=== PATIENT | male | born 1990 | race Caucasian/White ===

== ENCOUNTER 2018-01-01 04:49 | Inpatient (IN) | payer SELFPAY ==
[~2018-01-01] VITALS: Ht 170.2 cm; Wt 60.4 kg
[2018-01-01 08:30] VITALS: BP 102/65; PULSE 65; RESP 16; TEMP 97.4; O2SAT 97
[2018-01-01] MEDS ORDERED: BENZ0.5T PO (10:01)
[2018-01-01] MEDS ORDERED: RISP.25 PO (10:01)
[2018-01-01] MEDS ORDERED: ALUMINUM/MAGNESIUM/SIMETH 30 ML CUP PO PRN (13:30)
[2018-01-01] MEDS ORDERED: ACETAMINOPHEN 325 MG TAB PO PRN (13:30)
[2018-01-01] MEDS ORDERED: MAGNESIUM HYDROXIDE SUSP 30 ML CUP PO PRN (13:30)
[2018-01-01] MEDS ORDERED: hydrOXYzine HCL 50 MG TAB PO PRN (15:45)
--- NOTE | 2018-01-01 16:04 | HHI.HP ---
Provisional Diagnosis Admission Date Jan 01, 2018 at 08:32 [place]. Schizophrenia chronic paranoid type Certification of Person's Competence To Provide Express and Informed Consent I have personally examined Sandee Minaya , a person being served at [facility] on, Jan 01, 2018 15:49. Express and informed consent means consent voluntarily given in writing, by a competent person, after sufficient explanation and disclosure of the subject matter involved to enable the person to make a knowing and willful decision without any element of force, fraud, deceit, duress, or other form of constraint or coercion. This person is 18 years of age or older, is not now known to be incompetent to consent to treatment with a guardian advocate, and does not have a health care surrogate or proxy currently making medical treatment decisions. I have found this person to be one of the following: [] Competent to provide express and informed consent, as defined above, for voluntary admission to this facility and is competent to provide express and informed consent for treatment. He/she has the consistent capacity to make well reasoned, willful, and knowing decisions concerning his or her medical or mental health treatment. The person fully and consistently understands the purpose of the admission for examination/placement and is fully capable of personally exercising all rights assured [place] [] Incompetent to provide express and informed consent to voluntary admission, and this is incompetent to provide express and informed consent to treatment. The person must be transferred to involuntary status and a petition for a guardian advocate filed with the Circuit Court. [xxx] Refusing to provide express and informed consent to voluntary admission but is competent to provide express and informed consent for treatment. The person must be discharged or transferred to involuntary status. Form shall be completed within 24 hours of a person's arrival at the receiving facility and filed in the clinical record of each person: 1. Admitted on a voluntary basis 2. Permitted to provide express and informed consent to his/her own treatment 3. Allowed to transfer from involuntary to voluntary status 4. Prior to permitting a person to consent to his or her own treatment after having been previously found incompetent to consent to treatment. History of Present Illness Capacity: Lacks Capacity (patient less capacity sign for hospitalization, patient has capacity sign for medications) HPI Patient is a 27 rolled Afro-[place] male comes here from one of the [facility] under Smith act signed by an eligible signature dated 12/31/17 at 8:41 PM the document reviewed and agreed with stating patient presents with reticulocyte behavior patient states he has been chewing on his hands and feet because God told him to. Patient states he is having voices she has poor insight and poor judgment. Is also documentation that he has been noted to be masturbating while in a public library. Patient seen screened at that facility urine toxicology negative. At the present time patient sitting in his room nurse Joanie present throughout session somewhat anxious showing marked thought blocking distractibility and delays in responses. Though he reluctantly did acknowledge auditory hallucinations though somewhat disturbing command nature. When asked about his hands able to them as if they were strange and pointed them out to me. He did acknowledge past psychiatric hospitalization but not 1. Needs vague about suicidality at this time. He states he lives with his parents and the [facility]. Then he went to 11th grade and get his GED and has been been successfully gainfully employed. States she has had girlfriends but is never been and has no children. He is vague about his compliance with medication states she has been prescribed Respinol and Cogentin though the med reconciliation shows the Respinol only 0.25 mg. At this time patient does meet criteria for acute psychiatric hospitalization under the Smith act I'll do first opinion request second opinion. I feel patient does have capacity we will allow him to sign for his medication. We'll start him on Respinol M tab 1 mg twice a day and Cogentin 1 mg in the morning. Hopeless be fairly short stay in the community return to his family Review of Systems Except as stated in HPI: all other systems reviewed are Neg Past Psych History Psychological trauma history Patient denies at this time Violence risk - others (6 mos) Low Violence risk - self (6 mos) Hospital self-mutilation Substance Abuse History Drugs/Alcohol past 12 months Patient denies Past Family Social History Coded Allergies: No Known Allergies (Verified Allergy, Unknown, 01/01/18) Discontinued Reported Medications Benztropine (Benztropine) 0.5 Mg Tab, 1 MG PO HS, #60 TAB 0 Refills 01/01/18 Risperidone (Risperdal) 0.25 Mg Tab, 0 PO HS, #30 TAB 0 Refills 01/01/18 Current Medications Medications (Trade) Dose Ordered Sig/Lauren Route Start Time Stop Time Status Last Admin (Tylenol) 650 mg Q4H PRN PO 01/01/18 13:30 (Milk Of Magnesia Liq) 30 ml DAILY PRN PO 01/01/18 13:30 (Mag-Al Plus Susp Liq) 30 ml Q6H PRN PO 01/01/18 13:30 Family Psych History Ration denies Social History Patient is single has had a girlfriend, has no children sexual preferences female Patient's Strengths (min. 2) Patient verbal irritable axis health care Physical Exam Patient medically cleared a [facility] at the present time patient sitting quietly in his room he is in no acute distress, he is in no pressure distress, he does not complain of abdominal pain. Patient moves all 4 extremities without difficulty no abnormal motor movements noted Vital Signs Vital Signs Date Time Temp Pulse Resp B/P (MAP) Pulse Ox O2 Delivery O2 Flow Rate FiO2 01/01/18 08:30 97.4 65 16 102/65 (77) 97 Mental Status Examination Appearance: Appropriate Consciousness: Alert Orientation: Person, Place Motor Activity: Normal gait Speech: Hesitant, Slow Language: Adequate Fund of Knowledge: Adequate Attention and Concentration: Easily Distracted Memory: Impaired Mood: Other (euthymic to slightly dysphoric and restricted) Affect: Other (decreased range and intensity) Thought Process & Associations: Linear Thought Content: Bizarre thinking Hallucination Type: Auditory Delusion Type: Paranoid Suicidal Ideation: No Suicidal Plan: No Suicidal Intention: No Homicidal Ideation: No Homicidal Plan: No Homicidal Intention: No Insight: Poor Judgment: Poor Assessment & Plan Problem List: (1) Paranoid type schizophrenia, chronic state ICD Codes: F20.0 - Paranoid schizophrenia Assessment & Plan Estimated LOS: 5-7 days this time patient meets criteria for involuntary psychiatric hospitalization of the first opinion request second opinion. I feel he has capacity. We'll start him on Respinol M tab 1 mg twice a day and Cogentin 1 mg in the morning. Attempt to reach patient's family who he states lives in [place]. Discharge Planning Possible discharge to family when stabilized Request HC Surrog/Guard Advoc?: No Ortiz Napoles MD Jan 01, 2018 16:03
[2018-01-01 17:36] VITALS: BP 105/67; PULSE 67; RESP 17; TEMP 97.6; O2SAT 98
[2018-01-01] MEDS: risperiDONE ODT 1 MG TAB PO SCH (21:00)
[2018-01-02 06:35] VITALS: BP 119/56; PULSE 62; RESP 17; TEMP 97.6; O2SAT 98
[2018-01-02] MEDS: risperiDONE ODT 1 MG TAB PO SCH ×2 (09:00→21:00)
[2018-01-02] MEDS: BENZTROPINE MESYLATE 1 MG TAB PO SCH (09:00)
--- NOTE | 2018-01-02 12:33 | PD.PSY.CON ---
Provisional Diagnosis Admission Date Jan 01, 2018 at 08:32 [place]. Schizophrenia chronic paranoid type History of Present Illness Service Psychiatry Consult Requested By Dr. Napoles Reason for Consult Second opinion Primary Care Physician No Primary Care Physician HPI Patient is a 27 rolled Afro-[place] male comes here from one of the [facility] under Smith act signed by an eligible signature dated 12/31/17 at 8:41 PM the document reviewed and agreed with stating patient presents with reticulocyte behavior patient states he has been chewing on his hands and feet because God told him to. Patient states he is having voices she has poor insight and poor judgment. Is also documentation that he has been noted to be masturbating while in a public library. Patient seen screened at that facility urine toxicology negative. At the present time patient sitting in his room nurse Joanie present throughout session somewhat anxious showing marked thought blocking distractibility and delays in responses. Though he reluctantly did acknowledge auditory hallucinations though somewhat disturbing command nature. When asked about his hands able to them as if they were strange and pointed them out to me. He did acknowledge past psychiatric hospitalization but not 1. Needs vague about suicidality at this time. He states he lives with his parents and the [facility]. Then he went to 11th grade and get his GED and has been been successfully gainfully employed. States she has had girlfriends but is never been and has no children. He is vague about his compliance with medication states she has been prescribed Respinol and Cogentin though the med reconciliation shows the Respinol only 0.25 mg. At this time patient does meet criteria for acute psychiatric hospitalization under the Smith act I'll do first opinion request second opinion. I feel patient does have capacity we will allow him to sign for his medication. We'll start him on Respinol M tab 1 mg twice a day and Cogentin 1 mg in the morning. Hopeless be fairly short stay in the community return to his family 01/02/18 -second opinion Patient is a 27-year-old -Barb[place] man who carries a diagnosis schizophrenia, who was brought in under Smith act due to self-injurious behavior by chewing on his hands and feet because cut told him to along with auditory hallucinations. Patient was found lying hospital bed noted B superficially cooperative. Patient is noted to be guarded and somewhat paranoid. Patient states that his aunt brought him here because she thought she he should be checked. Patient denies any auditory hallucinations at this time but reports having them yesterday but did not elaborate only stating that the voices ask for help. Patient denies believing in God when asked about recent report of command hallucinations from God to in his hands and feet. Patient did not elaborate further. Patient agrees to continue medication treatment. Past Family Social History Coded Allergies: No Known Allergies (Verified Allergy, Unknown, 01/01/18) Discontinued Reported Medications Benztropine (Benztropine) 0.5 Mg Tab, 1 MG PO HS, #60 TAB 0 Refills 01/01/18 Risperidone (Risperdal) 0.25 Mg Tab, 0 PO HS, #30 TAB 0 Refills 01/01/18 Current Medications Medications (Trade) Dose Ordered Sig/Lauren Route Start Time Stop Time Status Last Admin (Tylenol) 650 mg Q4H PRN PO 01/01/18 13:30 (Milk Of Magnesia Liq) 30 ml DAILY PRN PO 01/01/18 13:30 (Mag-Al Plus Susp Liq) 30 ml Q6H PRN PO 01/01/18 13:30 (Atarax) 50 mg Q6H PRN PO 01/01/18 15:45 (risperDAL M-TAB) 1 mg Q12HR PO 01/01/18 21:00 (Cogentin) 1 mg DAILY PO 01/02/18 09:00 Patient's Strengths (min. 2) Patient verbal irritable axis health care Physical Exam Vital Signs Vital Signs Date Time Temp Pulse Resp B/P (MAP) Pulse Ox O2 Delivery O2 Flow Rate FiO2 01/02/18 06:35 97.6 62 17 119/56 (77) 98 Mental Status Examination Appearance: Appropriate Consciousness: Alert Orientation: Person, Place Motor Activity: Normal gait Speech: Hesitant, Slow Language: Adequate Fund of Knowledge: Adequate Attention and Concentration: Easily Distracted Memory: Impaired Mood: Other Affect: Other Thought Process & Associations: Intact, Linear Thought Content: Bizarre thinking Hallucination Type: Auditory Delusion Type: Paranoid Suicidal Ideation: No Suicidal Plan: No Suicidal Intention: No Homicidal Ideation: No Homicidal Plan: No Homicidal Intention: No Insight: Poor Judgment: Poor Assessment & Plan Problem List: (1) Paranoid type schizophrenia, chronic state ICD Codes: F20.0 - Paranoid schizophrenia Assessment & Plan I have seen and examined the patient, documentation reviewed. I agree and concur with Dr. Napoles's assessment and plan. Documentation for second opinion completed. Consult appreciated. Request HC Surrog/Guard Advoc?: Sanchez Wilks MD Jan 02, 2018 12:33
[2018-01-03 06:39] VITALS: BP 90/52; PULSE 78; RESP 17; TEMP 99; O2SAT 96
[2018-01-03] MEDS: risperiDONE ODT 1 MG TAB PO SCH ×2 (09:00→20:02)
[2018-01-03] MEDS: BENZTROPINE MESYLATE 1 MG TAB PO SCH (09:12)
--- NOTE | 2018-01-03 09:28 | HHI.PYPN ---
Subjective Remarks Reviewed electronic medical record discussed case with staff. Patient follow- up performed in his room with nurse present. Patient was found lying in bed with the covers over his head. Responded to verbal stimuli. Patient states that he slept well and has good appetite. He denies having any suicidal or homicidal ideations, visual or auditory hallucinations. I was unable to elicit any delusional material. His speech is clear logical and organized throughout the interview. His mood was good his affect was euthymic and patient was polite with this provider. He states that he was living with his family but they were recently evicted. He reports that he spoke with his aunt the other day. His family is residing with his grandmother at this time. Mental Status Examination Appearance: Appropriate Consciousness: Alert Orientation: Person, Place Motor Activity: Normal gait Speech: Unremarkable Language: Adequate Fund of Knowledge: Adequate Memory: Unremarkable Mood: Good Affect: Euthymic Thought Process & Associations: Intact, Linear Thought Content: Appropriate Hallucination Type: None Delusion Type: None Suicidal Ideation: No Suicidal Plan: No Suicidal Intention: No Homicidal Ideation: No Homicidal Plan: No Homicidal Intention: No Insight: Fair Judgment: Impulsive Results Vitals/IOs Vital Signs Date Time Temp Pulse Resp B/P (MAP) Pulse Ox O2 Delivery O2 Flow Rate FiO2 01/03/18 06:39 99.0 78 17 90/52 (65) 96 Assessment & Plan Problem List: (1) Paranoid type schizophrenia, chronic state ICD Codes: F20.0 - Paranoid schizophrenia Assessment & Plan Estimated LOS: Continue with treatment plan to stabilize patient on medication. Justification for Cont. Inpt. Moving this patient to a lower level of care would likely result in decompensation. Request HC Surrog/Guard Advoc?: No Glendy Rome Jan 03, 2018 09:28
[2018-01-03 17:23] VITALS: BP 103/55; PULSE 73; RESP 18; TEMP 98.2; O2SAT 99
[2018-01-04] MEDS: risperiDONE ODT 1 MG TAB PO SCH ×2 (08:52→20:42)
[2018-01-04] MEDS: BENZTROPINE MESYLATE 1 MG TAB PO SCH (08:52)
--- NOTE | 2018-01-04 13:59 | HHI.PYPN ---
Subjective Remarks Patient seen in his room with nurse Bernal, chart review, patient compliant medication, patient discussed with nurse. Patient sitting up in bed he is calm cooperative with compliant and reserved with little interaction on the unit. There is some very mild delays in his responses. He acknowledges auditory hallucinations though somewhat vague about that. He does denies suicidality. Is vague with any prior noncompliance compliance issues with medication. For now continue treatment Review of Systems Except as stated in HPI: all other systems reviewed are Neg Mental Status Examination Appearance: Appropriate Consciousness: Alert Orientation: Person, Place Motor Activity: Normal gait Speech: Unremarkable Language: Adequate Fund of Knowledge: Adequate Memory: Unremarkable Mood: Good Affect: Euthymic Thought Process & Associations: Intact, Linear Thought Content: Appropriate Hallucination Type: None Delusion Type: None Suicidal Ideation: No Suicidal Plan: No Suicidal Intention: No Homicidal Ideation: No Homicidal Plan: No Homicidal Intention: No Insight: Fair Judgment: Impulsive Results Vitals/IOs Vital Signs Date Time Temp Pulse Resp B/P (MAP) Pulse Ox O2 Delivery O2 Flow Rate FiO2 01/03/18 17:23 98.2 73 18 103/55 (71) 99 Assessment & Plan Problem List: (1) Paranoid type schizophrenia, chronic state ICD Codes: F20.0 - Paranoid schizophrenia Assessment & Plan Estimated LOS: days patient continues somewhat psychotic though softer, his compliant medications. For now continue treatment Justification for Cont. Inpt. At this time patient will decompensate of placed in a lower level of care Discharge Planning Possible return home with family Request HC Surrog/Guard Advoc?: No Ortiz Napoles MD Jan 04, 2018 13:59
[2018-01-05 06:23] VITALS: BP 96/58; PULSE 61; RESP 18; TEMP 98.3
[2018-01-05] MEDS: risperiDONE ODT 1 MG TAB PO SCH ×2 (09:14→20:09)
[2018-01-05] MEDS: BENZTROPINE MESYLATE 1 MG TAB PO SCH (09:14)
--- NOTE | 2018-01-05 14:20 | HHI.PYPN ---
Subjective Remarks Reviewed electronic medical record discussed case with staff. Patient has been compliant with medications. Follow-up was performed in patient's room. He was found lying in his bed, awake and alert. Patient reports that he slept well and has had a good appetite. He reports that he is feeling much better and is requesting to be discharged. He denies suicidal or homicidal ideation, auditory or visual hallucinations. He states that his mother is agreed to pick them up as soon as we let him out. Spoke with Mirza, his counselor, who called the mother. Patient will be a homeless discharge to the library. She advises that she can pick them up tomorrow and transport him to the library. As we do not have transport from today patient will likely be discharged tomorrow. Mental Status Examination Appearance: Appropriate Consciousness: Alert Orientation: Person, Place Motor Activity: Normal gait Speech: Unremarkable Language: Adequate Fund of Knowledge: Adequate Memory: Unremarkable Mood: Good Affect: Euthymic Thought Process & Associations: Intact, Linear Thought Content: Appropriate Hallucination Type: None Delusion Type: None Suicidal Ideation: No Suicidal Plan: No Suicidal Intention: No Homicidal Ideation: No Homicidal Plan: No Homicidal Intention: No Insight: Fair Judgment: Impulsive Results Vitals/IOs Vital Signs Date Time Temp Pulse Resp B/P (MAP) Pulse Ox O2 Delivery O2 Flow Rate FiO2 01/05/18 06:23 98.3 61 18 96/58 (71) 01/03/18 17:23 99 Assessment & Plan Problem List: (1) Paranoid type schizophrenia, chronic state ICD Codes: F20.0 - Paranoid schizophrenia Assessment & Plan Estimated LOS: Discharge planning in progress. Likely discharge tomorrow. Days Justification for Cont. Inpt. Moving this patient to a lower level of care would likely result in a decompensation. Discharge planning for tomorrow is in progress. Request HC Surrog/Guard Advoc?: No Glendy Rome Jan 05, 2018 14:20
[2018-01-05 18:03] VITALS: BP 111/62; PULSE 86; RESP 17; TEMP 98.4; O2SAT 100
[2018-01-06 05:56] VITALS: BP 113/67; PULSE 81; RESP 18; TEMP 98.2; O2SAT 98
[2018-01-06] MEDS ORDERED: RISP1 PO (09:44)
[2018-01-06] MEDS ORDERED: Benztropine PO (09:44)
--- NOTE | 2018-01-06 09:56 | HHI.DS ---
Psychiatry Discharge Summary Inpatient Psychiatric care?: Yes Advance Directive: No Reason Not Provided: DOES NOT HAVE Mental Health AdvanceDirective: No Health Care Proxy: No Admission Admission Date Jan 01, 2018 at 08:32 Admission Diagnosis: (1) Paranoid type schizophrenia, chronic state ICD Code: F20.0 - Paranoid schizophrenia Brief History Patient is a 27 rolled Afro-[place] male comes here from one of the [facility] under Smith act signed by an eligible signature dated 12/31/17 at 8:41 PM the document reviewed and agreed with stating patient presents with reticulocyte behavior patient states he has been chewing on his hands and feet because God told him to. Patient states he is having voices she has poor insight and poor judgment. Is also documentation that he has been noted to be masturbating while in a public library. Patient seen screened at that facility urine toxicology negative. At the present time patient sitting in his room nurse Joanie present throughout session somewhat anxious showing marked thought blocking distractibility and delays in responses. Though he reluctantly did acknowledge auditory hallucinations though somewhat disturbing command nature. When asked about his hands able to them as if they were strange and pointed them out to me. He did acknowledge past psychiatric hospitalization but not 1. Needs vague about suicidality at this time. He states he lives with his parents and the [facility]. Then he went to 11th grade and get his GED and has been been successfully gainfully employed. States she has had girlfriends but is never been and has no children. He is vague about his compliance with medication states she has been prescribed Respinol and Cogentin though the med reconciliation shows the Respinol only 0.25 mg. At this time patient does meet criteria for acute psychiatric hospitalization under the Smith act I'll do first opinion request second opinion. I feel patient does have capacity we will allow him to sign for his medication. We'll start him on Respinol M tab 1 mg twice a day and Cogentin 1 mg in the morning. Hopeless be fairly short stay in the community return to his family 01/02/18 -second opinion Patient is a 27-year-old -[place] man who carries a diagnosis schizophrenia, who was brought in under Smith act due to self-injurious behavior by chewing on his hands and feet because cut told him to along with auditory hallucinations. Patient was found lying hospital bed noted B superficially cooperative. Patient is noted to be guarded and somewhat paranoid. Patient states that his aunt brought him here because she thought she he should be checked. Patient denies any auditory hallucinations at this time but reports having them yesterday but did not elaborate only stating that the voices ask for help. Patient denies believing in God when asked about recent report of command hallucinations from God to in his hands and feet. Patient did not elaborate further. Patient agrees to continue medication treatment. Tobacco Use In Past 30 Days: 5 or More Cigarettes/Day Alcohol Use: Monthly or Less Hospital Course Patient's hospital course was uneventful. He showed compliance with his medication from the onset, he was never very active in the program though he was no behavioral problem. His vague perceptual abnormalities resolved, and now denies suicidality homicidality voices or visions. This time I feel patient reached maximum benefit of this hospitalization. His family is willing to Return home, is willing to make a commitment to be compliant with medications , compliant with mental health follow-ups and maintain sobriety.Will be discharged today Rx 1 month to follow-up facility in the community Results Blood Pressure 113 / 67 Vital Signs Date Time Temp Pulse Resp B/P (MAP) Pulse Ox O2 Delivery O2 Flow Rate FiO2 01/06/18 05:56 98.2 81 18 113/67 (82) 98 Urine toxicology negative at [facility] Summary of Procedures None done Pending results at discharge: No Medications # of Antipsychotic meds at D/C: 1 Approp Antipsych med options 1 - Minimum of three failed multiple trials of monotherapy. 2 - Documented plan to taper to monotherapy due to previous use of multiple meds OR cross-taper in progress at D/C. 3 - Documentation of augmentation of Clozapine. 4 - Justification other than those listed in allowable values 1-3, document here : Discharge Discharge Date: Jan 06, 2018 Discharge Diagnosis: (1) Paranoid type schizophrenia, chronic state Diagnosis: Principal ICD Code: F20.0 - Paranoid schizophrenia Pt Condition on Discharge: Stable Discharge Disposition: Discharge Home Discharge Instructions Diet Instructions: As Tolerated, No Restrictions Activities you can perform: Regular-No Restrictions Scheduled Appointment: [facility]al Appointment Date: Jan 06, 2018 Appointment Time: 330pm Discharge Time > 30 minutes Mental Status Examination Appearance: Appropriate Consciousness: Alert Orientation: Person, Place Motor Activity: Normal gait Speech: Unremarkable Language: Adequate Fund of Knowledge: Adequate Memory: Unremarkable Mood: Good Affect: Euthymic Thought Process & Associations: Intact, Linear Thought Content: Appropriate Hallucination Type: None Delusion Type: None Suicidal Ideation: No Suicidal Plan: No Suicidal Intention: No Homicidal Ideation: No Homicidal Plan: No Homicidal Intention: No Insight: Fair Judgment: Impulsive Discharge/Advance Care Plan Health Problems: (1) Paranoid type schizophrenia, chronic state Goals to promote your health * To prevent worsening of your condition and complications * To maintain your health at the optimal level Directions to meet your goals Take your medications as prescribed Follow your dietary instruction Follow activity as directed Keep your appointments as scheduled Take your immunizations and boosters as scheduled If your symptoms worsen call your PCP, if no PCP go to Urgent Care Center or Emergency Room For 20/04 questions related to your inpatient stay or results of tests pending at discharge, please contact Dr. Ortiz Napoles at Smoking is Dangerous to Your Health. Avoid second hand smoking Ortiz Napoles MD Jan 06, 2018 09:56
[2018-01-06] MEDS: risperiDONE ODT 1 MG TAB PO SCH (10:21)
[2018-01-06] MEDS: BENZTROPINE MESYLATE 1 MG TAB PO SCH (10:21)
== END 2018-01-06 12:00 | disposition home or self-care (01) | DRG 885 ==
LOC: H270 08:32
PROVIDERS: ADMIT Psychiatry & Neurology Psychiatry; ATTEND Psychiatry & Neurology Psychiatry
DX: F20.0 Paranoid schizophrenia (principal); Z59.0 Homelessness; F17.210 Nicotine dependence, cigarettes, uncomplicated